=== PATIENT | male | born 1970 | race Caucasian/White ===

== ENCOUNTER 2023-12-07 12:47 | Outpatient (REF) | payer SELFPAY ==
[2023-12-07 16:48] LABS: Alanine Aminotransferase 26 U/L (0-40); Albumin Level 4.4 g/dL (3.5-5.0); Alkaline Phosphatase 120 U/L (39-117); Anion Gap 15 (12-20); Aspartate Amino Transferase 26 U/L (5-37); Bilirubin Total 0.7 mg/dL (0.0-1.0); Blood Urea Nitrogen 9 mg/dL (9-16); Calcium 9.6 mg/dL (8.4-10.2); Carbon Dioxide 25 mmol/L (22-29); Chloride 105 mmol/L (96-108); Cholesterol 162 mg/dL (<200); Estimated Glomerular Filt Rate > 60; Glucose Random 90 mg/dL (60-115); HDL Cholesterol 46 mg/dL (>40); LDL Cholesterol Calculated 83 mg/dL (<100); Potassium 4.6 mmol/L (3.3-5.1); Sodium 140 mmol/L (135-145); Total Protein 8.4 g/dL (6.5-8.0); Triglycerides 168 mg/dL (<150)
[2023-12-07 17:06] LABS: TSH reflex Free T4 1.53 uIU/mL (0.32-4.0)
[2023-12-08 04:23] LABS: Syphilis Screen Reactive (Nonreactive)
[2023-12-08 04:27] LABS: HBsAGNum1 0.27 S/CO (0.00-0.99); Hepatitis B Core Antibody Nonreactive (Nonreactive); Hepatitis B Surface Antigen Negative (Negative); ~HepC Num1 0.17 S/CO (0.00-0.79); ~Hepatitis C Antibody Nonreactive (Nonreactive)
[2023-12-09 17:59] LABS: Rubella IgG Antibody 1.87 Index; Rubeola IgG (Measles) <13.50 AU/mL
[2023-12-12 23:33] LABS: C. Trachomatis RNA TMA, Throat NOT DETECTED; N. gonorrhoeae RNA TMA, Throat NOT DETECTED
[2023-12-13 06:39] LABS: C.Trachomatis RNA TMA, Rectal DETECTED; N.Gonorrhoeae RNA TMA, Rectal NOT DETECTED
[2023-12-15 15:14] LABS: RPR Quantitative Reactive 1:1 (Nonreactive); T.Pallidum Particle Agg Test Reactive (Nonreactive)
== END 2023-12-07 12:48 | disposition home or self-care (01) ==
LOC: HO.HHCL 12:47
PROVIDERS: Visit Provider Student in an Organized Health Care Education/Training Program
DX: Z00.00 Encounter for general adult medical examination without abnormal findings (principal); Z13.6 Encounter for screening for cardiovascular disorders; B20 Human immunodeficiency virus [HIV] disease
CPT/HCPCS: 36415; 80053; 80061; 84443; 86592; 86704; 86735; 86762; 86765; 86780; 86803; 87340; 87491; 87591

== ENCOUNTER 2023-12-08 08:14 | Outpatient (REF) | payer SELFPAY ==
[2023-12-08 11:44] LABS: Hematocrit 41.4 % (42.0-52.0); Hemoglobin 14.5 g/dl (14.0-18.0); Mean Corpuscular Hemoglobin 32.8 pg (27.0-33.0); Mean Corpuscular Volume 93.7 fL (80.0-98.0); Mean Platelet Volume 9.3 fL (9.4-12.4); Platelet Count 290 X10*3/uL (160-400); Red Blood Count 4.42 X10*6/uL (4.60-5.80); Red Cell Distribution Width 12.9 % (11.0-16.0); White Blood Count 5.9 X10*3/uL (4.8-10.8)
[2023-12-08 12:41] LABS: HBS Num1 6.47 mIU/mL (0-7.99); Hepatitis A Antibody IgG REACTIVE (Nonreactive); ~Hepatitis A Antibody IgG 11.83 S/CO (0.00-0.99); ~Hepatitis B Surface Antibody NONREACTIVE (Nonreactive)
[2023-12-09 15:08] LABS: HIV RNA PCR Qn Copies 3790 copies/mL (NOT DETECTED); HIV RNA PCR Qn Log Copies 3.58 (NOT DETECTED)
[2023-12-09 17:18] LABS: Varicella IgG Antibody <135.00 index
[2023-12-11 01:38] LABS: TS Negative Control Passed; TS Panel A 1; TS Panel B 1; TS Positive Control Passed; TSpotTB Negative (Negative)
== END 2023-12-08 08:15 | disposition home or self-care (01) ==
LOC: HO.HHCL 08:14
PROVIDERS: Visit Provider Student in an Organized Health Care Education/Training Program
DX: Z00.00 Encounter for general adult medical examination without abnormal findings (principal); B20 Human immunodeficiency virus [HIV] disease; Z12.5 Encounter for screening for malignant neoplasm of prostate
CPT/HCPCS: 36415; 84153; 85027; 86481; 86706; 86708; 86787; 87536

== ENCOUNTER 2024-03-12 08:55 | Outpatient (REF) | payer SELFPAY ==
[2024-03-12 11:03] LABS: MANUAL DIFF FLAG NO
[2024-03-12 11:12] LABS: Basophils Percent Auto 0.5 % (0-2); Eosinophils Absolute Auto 0.1 X10*3/uL (0.0-0.4); Hematocrit 42.1 % (42.0-52.0); Hemoglobin 14.4 g/dl (14.0-18.0); Imm Gran Abs Auto 0.01 X10*3/uL (0.00-0.03); Imm Gran Pct Auto 0.2 % (0.0-0.4); Lymphocytes Absolute Auto 1.3 X10*3/uL (1.2-4.9); Lymphocytes Percent Auto 31.7 % (20-40); Mean Corpuscular HGB Conc 34.2 g/dl (31.0-36.0); Mean Corpuscular Hemoglobin 32.3 pg (27.0-33.0); Mean Corpuscular Volume 94.4 fL (80.0-98.0); Mean Platelet Volume 8.9 fL (9.4-12.4); Monocytes Absolute Auto 0.6 X10*3/uL (0.1-1.2); Monocytes Percent Auto 13.7 % (2-11); Neutrophils Absolute Auto 2.1 x10*3/uL (2.0-8.3); Neutrophils Percent Auto 51.9 % (45-73); Platelet Count 292 X10*3/uL (160-400); Red Blood Count 4.46 X10*6/uL (4.60-5.80); Red Cell Distribution Width 11.9 % (11.0-16.0); White Blood Count 4.1 X10*3/uL (4.8-10.8)
[2024-03-12 11:33] LABS: Alanine Aminotransferase 22 U/L (0-40); Alkaline Phosphatase 100 U/L (39-117); Anion Gap 12 (12-20); Aspartate Amino Transferase 25 U/L (5-37); Bilirubin Total 0.4 mg/dL (0.0-1.0); Blood Urea Nitrogen 14 mg/dL (9-16); Carbon Dioxide 24 mmol/L (22-29); Chloride 107 mmol/L (96-108); Estimated Glomerular Filt Rate > 60; Glucose Random 104 mg/dL (60-115); Potassium 4.1 mmol/L (3.3-5.1); Sodium 139 mmol/L (135-145); Total Protein 7.3 g/dL (6.5-8.0)
[2024-03-15 08:27] LABS: HIV RNA PCR Qn Copies 67 copies/mL (NOT DETECTED); HIV RNA PCR Qn Log Copies 1.83 (NOT DETECTED)
[2024-03-15 18:23] LABS: Absolute CD3 Count 919 cells/uL (840-3060); Absolute CD4 Count 355 cells/uL (490-1740); Absolute CD8 Count 554 cells/uL (180-1170); Absolute Lymphocytes 1397 cells/uL (850-3900); CD4 CD8 Ratio 0.64 (0.86-5.00); Percent CD3 Cells 66 % (57-85); Percent CD4 Cells 25 % (30-61); Percent CD8 Cells 40 % (12-42)
== END 2024-03-12 08:56 | disposition home or self-care (01) ==
LOC: HO.HHCL 08:55
PROVIDERS: Visit Provider Student in an Organized Health Care Education/Training Program
DX: B20 Human immunodeficiency virus [HIV] disease (principal)
CPT/HCPCS: 36415; 80053; 85025; 86359; 86360; 87536

== ENCOUNTER 2024-07-16 11:54 | Outpatient (REF) | payer MEDICAID, SELFPAY ==
--- OUTSIDE RECORDS SUMMARY | 2024-07-16 12:00 | XMS_ITS | Continuity of Care Document ---
Author Organization [facility] Address [address] [address] Phone Care Team Providers Care Oil Separator Name Role Phone Admin, Admin Unavailable Unavailable [...] Diagnoses Date Provider Providers Copied on Encounter [facility] , [address] [place] [address], [id number] , tel: [phone] Visual Rehabilitation No Information 3 Admin Admin. . OFFICE O/P NEW LOW 30-44 MIN [facility] , [address] [place] [address], [id number] , tel: [phone] Primary Care DFE (chief complaint) Human immunodeficienc y virus [HIV] diseasePresbyop ia 2 Krystin Stephens. [address] [place] [address], [id number] , . tel: [phone] Referring Provider: Kat Mcclelland OD, [facility] [address] [place] [address], [place], [address]. tel:[phone] Family History Family Member Type Diagnosis Age At Onset Father Problem Diabetes mellitus Mother Problem Hepatitis C (Cause Of ) Father Problem Hypertension Payers Payer name Insurance type Covered libertarian ID Karthikeyan robles(s) [facility] [id number] Social History Type Description Quantity Date Captured [...]
[2024-07-16 13:22] LABS: Appearance Urine Clear; Color Urine Yellow; Glucose Urine UA Negative (Negative); Leukocyte Esterase Urine Negative (Negative); Nitrite Urine Negative (Negative); Specific Gravity - Urine 1.015 (1.005-1.025); Urine Blood Negative (Negative); Urine Ketones Negative (Negative); Urine Protein Negative (Neg-Trace)
[2024-07-16 13:27] LABS: Bacteria Urine None Seen (None Seen); Hyaline Casts Urine 0-2 /LPF (0-2); RBC Urine 0-2 /HPF (0-2); Squamous Epithelial Cell Urine 0-2 /HPF (0-2); WBC Urine 0-5 /HPF (0-5)
[2024-07-16 13:34] LABS: MANUAL DIFF FLAG NO
[2024-07-16 13:49] LABS: Basophils Percent Auto 0.5 % (0-2); Eosinophils Percent Auto 0.7 % (0-4); Hematocrit 42.9 % (42.0-52.0); Imm Gran Abs Auto 0.02 X10*3/uL (0.00-0.03); Imm Gran Pct Auto 0.4 % (0.0-0.4); Lymphocytes Absolute Auto 1.7 X10*3/uL (1.2-4.9); Lymphocytes Percent Auto 29.9 % (20-40); Mean Corpuscular Hemoglobin 32.8 pg (27.0-33.0); Mean Corpuscular Volume 93.7 fL (80.0-98.0); Mean Platelet Volume 9.1 fL (9.4-12.4); Monocytes Absolute Auto 0.6 X10*3/uL (0.1-1.2); Monocytes Percent Auto 11.4 % (2-11); Neutrophils Absolute Auto 3.2 x10*3/uL (2.0-8.3); Neutrophils Percent Auto 57.1 % (45-73); Platelet Count 356 X10*3/uL (160-400); Red Blood Count 4.58 X10*6/uL (4.60-5.80); Red Cell Distribution Width 12.4 % (11.0-16.0); White Blood Count 5.6 X10*3/uL (4.8-10.8)
[2024-07-16 14:20] LABS: Alanine Aminotransferase 31 U/L (0-40); Albumin Level 4.3 g/dL (3.5-5.0); Alkaline Phosphatase 107 U/L (39-117); Anion Gap 11 (12-20); Aspartate Amino Transferase 30 U/L (5-37); Bilirubin Total 0.6 mg/dL (0.0-1.0); Blood Urea Nitrogen 9 mg/dL (9-16); Carbon Dioxide 27 mmol/L (22-29); Chloride 104 mmol/L (96-108); Cholesterol 177 mg/dL (<200); Estimated Glomerular Filt Rate > 60; Glucose Random 101 mg/dL (60-115); HDL Cholesterol 47 mg/dL (>40); LDL Cholesterol Calculated 93 mg/dL (<100); Potassium 4.1 mmol/L (3.3-5.1); Sodium 138 mmol/L (135-145); Total Protein 7.8 g/dL (6.5-8.0); Triglycerides 188 mg/dL (<150)
[2024-07-16 14:30] LABS: Estimated Average Glucose 97 mg/dL; Hemoglobin A1C 117.0802 umol/L; Total Hemoglobin (HGBA1C) 3734.2338 umol/L
[2024-07-16 14:32] LABS: Vitamin B12 446 pg/mL (200-900)
[2024-07-16 14:47] LABS: CT PCR NOT DETECTED (Not Detect.); NG PCR NOT DETECTED (Not Detect.)
[2024-07-16 15:22] LABS: Reflex LDLD? No
[2024-07-17 07:59] LABS: ~HepC Num1 0.11 S/CO (0.00-0.79); ~Hepatitis C Antibody Nonreactive (Nonreactive)
[2024-07-17 21:59] LABS: Varicella IgG Antibody <1.00 S/CO
[2024-07-18 16:53] LABS: HIV RNA PCR Qn Copies 122 copies/mL (NOT DETECTED); HIV RNA PCR Qn Log Copies 2.09 (NOT DETECTED)
[2024-07-18 17:43] LABS: RPR Rapid Plasma Reagin NON-REACTIVE (NON-REACTIVE)
[2024-07-19 04:43] LABS: TS Negative Control Passed; TS Panel A 0; TS Panel B 0; TS Positive Control Passed; TSpotTB Negative (Negative)
[2024-07-19 17:59] LABS: Absolute CD3 Count 1158 cells/uL (840-3060); Absolute CD4 Count 458 cells/uL (490-1740); Absolute CD8 Count 702 cells/uL (180-1170); Absolute Lymphocytes 1823 cells/uL (850-3900); CD4 CD8 Ratio 0.65 (0.86-5.00); Percent CD3 Cells 64 % (57-85); Percent CD4 Cells 25 % (30-61); Percent CD8 Cells 39 % (12-42)
== END 2024-07-16 11:55 | disposition home or self-care (01) ==
LOC: HO.HHCL 11:54
PROVIDERS: Visit Provider Internal Medicine
DX: Z21 Asymptomatic human immunodeficiency virus [HIV] infection status (principal)
CPT/HCPCS: 80053; 80061; 81001; 82607; 83036; 85025; 86359; 86360; 86481; 86592; 86787; 86803; 87491; 87536; 87591

== ENCOUNTER 2024-07-30 14:19 | Outpatient (REF) | payer MEDICAID, SELFPAY ==
--- OUTSIDE RECORDS SUMMARY | 2024-07-30 14:30 | XMS_ITS | Continuity of Care Document ---
Author Organization [facility] Address [address] [address] Phone Care Team Providers Care Gold Blower Name Role Phone Admin, Admin Unavailable Unavailable [...] Diagnoses Date Provider Providers Copied on Encounter [facility] , [address] [place] [address], [id number] , tel: [phone] Visual Rehabilitation No Information 3 Admin Admin. . OFFICE O/P NEW LOW 30-44 MIN [facility] , [address] [place] [address], [id number] , tel: [phone] Primary Care DFE (chief complaint) Human immunodeficienc y virus [HIV] diseasePresbyop ia 2 Krystin Stephens. [address] [place] [address], [id number] , . tel: [phone] Referring Provider: Kat Mcclelland OD, [facility] [address] [place] [address], [place], [address]. tel:[phone] Family History Family Member Type Diagnosis Age At Onset Father Problem Diabetes mellitus Mother Problem Hepatitis C (Cause Of ) Father Problem Hypertension Payers Payer name Insurance type Covered republican ID Karthikeyan robles(s) [facility] [employer] [facility] [id number] Social History Type Description Quantity Date Captured [...]
== END 2024-07-30 14:20 | disposition home or self-care (01) ==
LOC: HO.HHCLNP 14:19
PROVIDERS: Visit Provider Internal Medicine
DX: Z21 Asymptomatic human immunodeficiency virus [HIV] infection status (principal)
CPT/HCPCS: 88112

== ENCOUNTER 2024-09-11 11:55 | Outpatient (REF) | payer MEDICAID, SELFPAY ==
[2024-09-11 13:05] LABS: MANUAL DIFF FLAG NO
--- OUTSIDE RECORDS SUMMARY | 2024-09-11 13:21 | XMS_ITS | Continuity of Care Document ---
Author Organization [facility] Address [address] [address] Phone Care Team Providers Care Lubricating Engineer Name Role Phone Admin, Admin Unavailable Unavailable [...] Diagnoses Date Provider Providers Copied on Encounter [facility] , [address] [place] [address], [id number] , tel: [phone] Visual Rehabilitation No Information 3 Admin Admin. . OFFICE O/P NEW LOW 30-44 MIN [facility] , [address] [place] [address], [id number] , tel: [phone] Primary Care DFE (chief complaint) Human immunodeficienc y virus [HIV] diseasePresbyop ia 2 Krystin Stephens. [address] [place] [address], [id number] , . tel: [phone] Referring Provider: Kat Mcclelland OD, [facility] [address] [place] [address], [place], [address]. tel:[phone] Family History Family Member Type Diagnosis Age At Onset Father Problem Diabetes mellitus Mother Problem Hepatitis C (Cause Of ) Father Problem Hypertension Payers Payer name Insurance type Covered green party ID Karthikeyan robles(s) [facility] [employer] [facility] [id number] Social History Type Description Quantity Date Captured [...]
[2024-09-11 13:24] LABS: Basophils Percent Auto 0.4 % (0-2); Eosinophils Absolute Auto 0.1 X10*3/uL (0.0-0.4); Eosinophils Percent Auto 0.7 % (0-4); Hematocrit 41.8 % (42.0-52.0); Hemoglobin 14.2 g/dl (14.0-18.0); Imm Gran Abs Auto 0.03 X10*3/uL (0.00-0.03); Imm Gran Pct Auto 0.4 % (0.0-0.4); Lymphocytes Absolute Auto 1.6 X10*3/uL (1.2-4.9); Lymphocytes Percent Auto 23.4 % (20-40); Mean Corpuscular Volume 94.1 fL (80.0-98.0); Mean Platelet Volume 9.3 fL (9.4-12.4); Monocytes Absolute Auto 0.7 X10*3/uL (0.1-1.2); Monocytes Percent Auto 10.6 % (2-11); Neutrophils Absolute Auto 4.5 x10*3/uL (2.0-8.3); Neutrophils Percent Auto 64.5 % (45-73); Platelet Count 381 X10*3/uL (160-400); Red Blood Count 4.44 X10*6/uL (4.60-5.80); Red Cell Distribution Width 12.4 % (11.0-16.0)
[2024-09-11 13:45] LABS: Alanine Aminotransferase 28 U/L (0-40); Albumin Level 4.2 g/dL (3.5-5.0); Alkaline Phosphatase 104 U/L (39-117); Anion Gap 8 (12-20); Aspartate Amino Transferase 34 U/L (5-37); Bilirubin Total 1.2 mg/dL (0.0-1.0); Blood Urea Nitrogen 15 mg/dL (9-16); Calcium 8.9 mg/dL (8.4-10.2); Carbon Dioxide 27 mmol/L (22-29); Chloride 107 mmol/L (96-108); Estimated Glomerular Filt Rate > 60; Glucose Random 102 mg/dL (60-115); Potassium 4.2 mmol/L (3.3-5.1); Sodium 138 mmol/L (135-145); Total Protein 7.9 g/dL (6.5-8.0)
[2024-09-13 16:29] LABS: HIV RNA PCR Qn Copies 81 copies/mL (NOT DETECTED); HIV RNA PCR Qn Log Copies 1.91 (NOT DETECTED)
[2024-09-16 17:14] LABS: Absolute CD3 Count 1135 cells/uL (840-3060); Absolute CD4 Count 477 cells/uL (490-1740); Absolute CD8 Count 646 cells/uL (180-1170); Absolute Lymphocytes 1680 cells/uL (850-3900); CD4 CD8 Ratio 0.74 (0.86-5.00); Percent CD3 Cells 68 % (57-85); Percent CD4 Cells 28 % (30-61); Percent CD8 Cells 38 % (12-42)
== END 2024-09-11 11:56 | disposition home or self-care (01) ==
LOC: HO.HHCL 11:55
PROVIDERS: Visit Provider Internal Medicine
DX: Z21 Asymptomatic human immunodeficiency virus [HIV] infection status (principal)
CPT/HCPCS: 36415; 80053; 82550; 85025; 86359; 86360; 87536

== ENCOUNTER 2025-01-14 10:48 | Outpatient (REF) | payer MEDICAID, SELFPAY ==
--- OUTSIDE RECORDS SUMMARY | 2025-01-14 12:15 | XMS_ITS | Continuity of Care Document ---
Author Organization [facility] Address [address] [address] Phone Care Team Providers Care Agency Sales Director Name Role Phone Admin, Admin Unavailable Unavailable [...] Diagnoses Date Provider Providers Copied on Encounter [facility] , [address] [place] [address], [id number] , tel: [phone] Visual Rehabilitation No Information 3 Admin Admin. . OFFICE O/P NEW LOW 30-44 MIN [facility] , [address] [place] [address], [id number] , tel: [phone] Primary Care DFE (chief complaint) Human immunodeficienc y virus [HIV] diseasePresbyop ia 2 Krystin Stephens. [address] [place] [address], [id number] , . tel: [phone] Referring Provider: Kat Mcclelland OD, [facility] [address] [place] [address], [place], [address]. tel:[phone] Family History Family Member Type Diagnosis Age At Onset Father Problem Diabetes mellitus Mother Problem Hepatitis C (Cause Of ) Father Problem Hypertension Payers Payer name Insurance type Covered libertarian ID Karthikeyan robles(s) [facility] [employer] [facility] [id number] Social History Type Description Quantity Date Captured [...]
[2025-01-14 13:30] LABS: Hemoglobin 13.9 g/dl (14.0-18.0); Mean Corpuscular HGB Conc 33.9 g/dl (31.0-36.0); Mean Corpuscular Hemoglobin 32.6 pg (27.0-33.0); Mean Corpuscular Volume 96.2 fL (80.0-98.0); Mean Platelet Volume 9.1 fL (9.4-12.4); Platelet Count 298 X10*3/uL (160-400); Red Blood Count 4.26 X10*6/uL (4.60-5.80); Red Cell Distribution Width 13.2 % (11.0-16.0); White Blood Count 3.9 X10*3/uL (4.8-10.8)
[2025-01-14 13:40] LABS: Alanine Aminotransferase 25 U/L (0-40); Albumin Level 4.1 g/dL (3.5-5.0); Alkaline Phosphatase 78 U/L (39-117); Anion Gap 9 (12-20); Aspartate Amino Transferase 29 U/L (5-37); Bilirubin Total 0.7 mg/dL (0.0-1.0); Blood Urea Nitrogen 14 mg/dL (9-16); Calcium 9.1 mg/dL (8.4-10.2); Carbon Dioxide 31 mmol/L (22-29); Chloride 108 mmol/L (96-108); Estimated Glomerular Filt Rate > 60; Glucose Random 89 mg/dL (60-115); Potassium 4.9 mmol/L (3.3-5.1); Sodium 143 mmol/L (135-145); Total Protein 6.9 g/dL (6.5-8.0)
[2025-01-14 14:04] LABS: HBS Num1 5.19 mIU/mL (0-7.99); HBc Num1 0.21 S/CO (0.00-0.79); HBsAGNum1 0.35 S/CO (0.00-0.99); Hepatitis B Core Antibody Nonreactive (Nonreactive); Hepatitis B Surface Antigen Negative (Negative); ~Hepatitis B Surface Antibody NONREACTIVE (Nonreactive)
[2025-01-14 15:52] LABS: Iron 113 mcg/dL (45-160); Percent Iron Saturation 39 % (15-50); Total Iron Binding Capacity 291 mcg/dL (228-428); Unsaturated Iron Binding 178 ug/dL
[2025-01-14 16:06] LABS: Ferritin 87 ng/mL (20-250)
[2025-01-15 21:49] LABS: HIV RNA PCR Qn Copies 425 copies/mL (NOT DETECTED); HIV RNA PCR Qn Log Copies 2.63 (NOT DETECTED)
[2025-01-18 21:34] LABS: Glucose-6-Phosphate Dehydrogen 15.6 U/g Hgb (7.0-20.5)
== END 2025-01-14 10:49 | disposition home or self-care (01) ==
LOC: HO.HHCL 10:48
PROVIDERS: Visit Provider Student in an Organized Health Care Education/Training Program
DX: Z21 Asymptomatic human immunodeficiency virus [HIV] infection status (principal)
CPT/HCPCS: 36415; 80053; 82728; 82955; 83540; 85027; 86704; 86706; 87340; 87536

== ENCOUNTER → 2025-02-15 13:30 | Outpatient (BNV) | payer MEDICAID, SELFPAY | PROVIDERS: PCP Student in an Organized Health Care Education/Training Program; Visit Provider Radiology Diagnostic Radiology | DX: M85.80 Other specified disorders of bone density and structure, unspecified site (principal) | CPT/HCPCS: 77080 ==

== ENCOUNTER 2025-02-15 13:41 | Outpatient (REF) | payer MEDICAID, SELFPAY ==
--- OUTSIDE RECORDS SUMMARY | 2022-09-14 06:38 | XMS_ITS | Continuity of Care Document ---
Author Organization [facility] Address [address] [address] Phone Care Team Providers Care Credit Reporting Clerk Name Role Phone Admin, Admin Unavailable Unavailable Allergies, Adverse Reactions, Alerts Substance Reaction Status Criticality pollen extracts Active No Informati on Medications Medication Instructions Dosage Effective Dates (start - stop) Status Comments lisinopril 2.5 mg tablet take 1 tablet by oral route every day 2.5 MG - Active Abilify 5 mg tablet take 1 tablet by ora l route every day 5 MG - Active atorvastatin 10 mg tablet take 1 tablet by oral route every day 10 MG - Active Biktarvy 30 mg-120 mg-15 mg tablet - Active bupropion HCl 75 mg tablet take 1 tablet by oral route 3 times every day 75 MG - Active Procedures Procedure Date OFFICE O/P NEW LOW 30-44 MIN Advance Directives Directive Yes / No Effective Date File Name No Information Encounters Encounter Description Practice Location Reason(s) For Visit Diagnoses Date Provider Providers Copied on Encounter [facility] , [address] [place] [address], [id number] , tel: [phone] Visual Rehabilitation No Information 3 Admin Admin. . OFFICE O/P NEW LOW 30-44 MIN [facility] , [address] [place] [address], [id number] , tel: [phone] Primary Care DFE (chief complaint) Human immunodeficienc y virus [HIV] diseasePresbyop ia 2 Krystin Stephens. [address] [place] [address], [id number] , . tel: [phone] Referring Provider: Kat Mcclelland OD, [facility] [address] [place] [address], [place], [address]. tel:[phone] Family History Family Member Type Diagnosis Age At Onset Father Problem Diabetes mellitus Mother Problem Hepatitis C (Cause Of ) Father Problem Hypertension Payers Payer name Insurance type Covered constitution party ID Karthikeyan robles(s) [facility] [employer] [facility] [id number] Social History Type Description Quantity Date Captured Comments Sex Male Smoking Status No Information Gender Identity Male Chief Complaint And Reason For Visit No Information Reason For Referral Reason For Referral No Information Plan Of Treatment Date Type Action Status Goal Tobacco cessation counseling completed History Of Present Illness Encounter Date Complaint History Of Prese nt Illness DFE 51 yo W M presen ts HIV positive for a referral for DFE;-- Pt reports headaches, dizzy and fatigue with new PALs -- HIV dx at 1986 -- CD4 count 680, undetectable (viral load) Functional Status Date Functional Assessmen t No Information Instructions Date Instruction Additional Infor mation Return in [address] Kat Mcclelland for Wellness Exam. Related to Human immunodeficiency virus [HIV] disease Impression/Plan Related to Presb yopia Impression/Plan Related to Human immunodeficiency virus [HIV] disease Assessments Type Assessment Date No Information Patient Care Teams Name Effective Dates (start - stop) Status Members No Information
--- NOTE | ~2025-02-15 | MM_ITS ---
EXAMINATION: DXA BONE DENSITY AXIAL HISTORY: pt is on ARV needs osteoporosis screening to r/o TECHNIQUE: [employer] Dual energy absorptiometry (DEXA) of the lumbar spine, total left hip, and femoral neck was performed. COMPARISON: There are no prior studies for comparison. FINDINGS: The bone mineral density of the lumbar spine is 1.099 g/cm2, corresponding to a T-score of -1.0, and a Z-score of -0.9. This is indicative of normal bone mineral density. The bone mineral density of the left total hip is 0.972 g/cm2, corresponding to a T-score of -0.9, and a Z-score of -0.6. This is indicative of normal bone mineral density. The bone mineral density of the left femoral neck is 0.912 g/cm2, corresponding to a T-score of -1.2, and a Z-score of -0.5. This is indicative of osteopenia. FRACTURE RISK: The FRAX index suggests a risk of major osteoporotic fracture of 6.5%, and of hip fracture 0.6%. MM/XR DEXA axial skeleton IMPRESSION: Based on bone mineral density, and according to World Health Organization (WHO) criteria, the diagnosis is consistent with osteopenia. Statistically, 68% of repeat scans fall within 1 SD (+/- 0.010 g/cm2 for AP spine L1-L4) and 1 SD (+/- 0.012 g/cm2 for femur total) FRAX is a trademark of the [employer] Met[employer] Disease, a World Health Organization (WHO) Collaborating Center. Electronically signed by: Steven Velasco MD 02/15/2025 02:14 PM EDT
== END 2025-02-15 13:42 | disposition home or self-care (01) ==
LOC: HO.MAMMO 13:41
PROVIDERS: PCP Student in an Organized Health Care Education/Training Program; Visit Provider Student in an Organized Health Care Education/Training Program
DX: Z13.820 Encounter for screening for osteoporosis (principal); Z21 Asymptomatic human immunodeficiency virus [HIV] infection status; M85.852 Other specified disorders of bone density and structure, left thigh
CPT/HCPCS: 77080

== ENCOUNTER 2025-03-12 11:05 | Outpatient (REF) | payer MEDICAID, SELFPAY ==
[2025-03-12 14:19] LABS: Ferritin 95 ng/mL (20-250); Iron 126 mcg/dL (45-160); Percent Iron Saturation 39 % (15-50); Total Iron Binding Capacity 322 mcg/dL (228-428); Unsaturated Iron Binding 196 ug/dL
== END 2025-03-12 11:06 | disposition home or self-care (01) ==
LOC: HO.HHCL 11:05
PROVIDERS: PCP Student in an Organized Health Care Education/Training Program; Visit Provider Student in an Organized Health Care Education/Training Program
DX: Z21 Asymptomatic human immunodeficiency virus [HIV] infection status (principal)
CPT/HCPCS: 36415; 82728; 83540; 87536

== ENCOUNTER 2025-03-13 10:37 | Outpatient (REF) | payer MEDICAID, SELFPAY ==
[2025-03-15 09:23] LABS: HIV RNA PCR Qn Copies 122 copies/mL (NOT DETECTED); HIV RNA PCR Qn Log Copies 2.09 (NOT DETECTED)
== END 2025-03-13 10:38 | disposition home or self-care (01) ==
LOC: HO.HHCL 10:37
PROVIDERS: PCP Student in an Organized Health Care Education/Training Program; Visit Provider Student in an Organized Health Care Education/Training Program
DX: Z21 Asymptomatic human immunodeficiency virus [HIV] infection status (principal)
CPT/HCPCS: 36415; 87536

== ENCOUNTER 2025-06-13 15:10 | Outpatient (REF) | payer MEDICAID, SELFPAY ==
[2025-06-13 16:08] LABS: MANUAL DIFF FLAG NO
[2025-06-13 16:30] LABS: Hematocrit 43.3 % (42.0-52.0); Hemoglobin 15.0 g/dl (14.0-18.0); Imm Gran Abs Auto 0.02 X10*3/uL (0.00-0.03); Imm Gran Pct Auto 0.4 % (0.0-0.4); Lymphocytes Absolute Auto 1.9 X10*3/uL (1.2-4.9); Mean Corpuscular HGB Conc 34.6 g/dl (31.0-36.0); Mean Corpuscular Hemoglobin 32.2 pg (27.0-33.0); Mean Corpuscular Volume 92.9 fL (80.0-98.0); NRBC Abs Auto 0.000 X10*3/uL (0.0-0.012); NRBC Pct Auto 0.0 /100WBC (0.0-0.2); Platelet Count 279 X10*3/uL (160-400); Red Blood Count 4.66 X10*6/uL (4.60-5.80); White Blood Count 5.6 X10*3/uL (4.8-10.8)
[2025-06-13 16:49] LABS: Alanine Aminotransferase 32 U/L (0-40); Albumin Level 4.8 g/dL (3.5-5.0); Alkaline Phosphatase 113 U/L (39-117); Anion Gap 11 (12-20); Aspartate Amino Transferase 44 U/L (5-37); Blood Urea Nitrogen 14 mg/dL (9-16); Calcium 9.5 mg/dL (8.4-10.2); Carbon Dioxide 28 mmol/L (22-29); Chloride 107 mmol/L (96-108); Cholesterol 216 mg/dL (<200); Estimated Glomerular Filt Rate > 60; HDL Cholesterol 42 mg/dL (>40); Potassium 3.8 mmol/L (3.3-5.1); Sodium 142 mmol/L (135-145); Total Protein 8.1 g/dL (6.5-8.0); Triglycerides 365 mg/dL (<150)
[2025-06-13 18:25] LABS: Reflex LDLD? No
[2025-06-14 04:06] LABS: HBS Num1 6.80 mIU/mL (0-7.99); HBc Num1 0.19 S/CO (0.00-0.79); HBsAGNum1 0.41 S/CO (0.00-0.99); Hepatitis B Surface Antigen Negative (Negative); ~HepC Num1 0.09 S/CO (0.00-0.79); ~Hepatitis B Surface Antibody NONREACTIVE (Nonreactive); ~Hepatitis C Antibody Nonreactive (Nonreactive)
[2025-06-14 22:14] LABS: HIV RNA PCR Qn Copies 67 copies/mL (NOT DETECTED); HIV RNA PCR Qn Log Copies 1.83 (NOT DETECTED)
[2025-06-16 07:27] LABS: TS Negative Control Passed; TS Panel A 0; TS Panel B 0; TS Positive Control Passed; TSpotTB Negative (Negative)
[2025-06-20 14:58] LABS: Absolute CD3 Count 1198 cells/uL (840-3060); Absolute CD8 Count 640 cells/uL (180-1170); Percent CD3 Cells 70 % (57-85); Percent CD8 Cells 38 % (12-42)
== END 2025-06-13 15:11 | disposition home or self-care (01) ==
LOC: HO.HHCL 15:10
PROVIDERS: PCP Student in an Organized Health Care Education/Training Program; Visit Provider Student in an Organized Health Care Education/Training Program
DX: Z21 Asymptomatic human immunodeficiency virus [HIV] infection status (principal); Z11.59 Encounter for screening for other viral diseases; Z11.1 Encounter for screening for respiratory tuberculosis
CPT/HCPCS: 36415; 80053; 80061; 83036; 85025; 86359; 86360; 86481; 86592; 86704; 86706; 86803; 87340; 87536